=== PATIENT | female | born 1995 ===

== ENCOUNTER 2024-10-19 10:47 | Outpatient (CLI) | payer OTHER | END 2024-10-19 10:54 | disposition home or self-care (01) | LOC: RAD 10:47 | PROVIDERS: ATTEND Obstetrics & Gynecology Gynecology | DX: R05.9 Cough, unspecified (principal) ==

== ENCOUNTER 2024-10-20 12:15 | Inpatient (IN) | payer OTHER ==
[~2024-10-20] VITALS: Ht 152.4 cm; Wt 73.5 kg
[2024-10-20 14:01] VITALS: BP 105/65
[2024-11-01] MEDS ORDERED: ANTIHEMOPHILIC FACTOR IV SCH ×6 (07:00→21:00)
[2024-11-01] MEDS ORDERED: [UNRECOGNIZED DRUG - OTHER] IV SCH ×6 (07:00→21:00)
[2024-11-01] MEDS ORDERED: POVIDONE-IODINE 118 ML BOTT TOP ONE (12:45)
[2024-11-01] MEDS ORDERED: BACITRACIN 28.35 GM OINT.TUBE TOP ONE (12:45)
[2024-11-01] MEDS ORDERED: BUPIVACAINE HCL/PF 0.25% 30ML VIAL InF ONE (12:45)
[2024-11-01] MEDS ORDERED: LIDOCAINE HCL 1%/EPINEPHRINE 20ML VIAL IJ ONE (12:45)
[2024-11-01] MEDS ORDERED: RINGERS SOLUTION,LACTATED 1,000 ML IV SCH (12:55)
[2024-11-01] MEDS ORDERED: ONDANSETRON HCL 2 MG/ML VIAL IV SCH (12:56)
[2024-11-01] MEDS ORDERED: ACETAMINOPHEN 325 MG TABLET PO STA (13:00)
[2024-11-01] MEDS ORDERED: GABAPENTIN 100 MG CAPSULE PO STA (13:01)
[2024-11-01] MEDS ORDERED: CEFAZOLIN SODIUM 1,000 MG VIAL IV SCH (13:01)
[2024-11-01] MEDS ORDERED: MORPHINE SULFATE 4 MG/ML VIAL IV ONE ×2 (13:30→14:00)
[2024-11-01] MEDS ORDERED: CEFTRIAXONE SODIUM 2,000 MG VIAL IV ONE (15:30)
[2024-11-01] MEDS ORDERED: METRONIDAZOLE/SODIUM CHLORIDE 500 MG/100 ML PIGGYBACK IV ONE (15:30)
[2024-11-01 16:44] LABS: HEMATOCRIT 38.2 % (36.0-45.00); HEMOGLOBIN 13.5 g/dL (12.0-15.00); MEAN CELL VOLUME 88.1 fL (80.00-100.00); MEAN CORPUSCULAR HEMOGLOBIN 31.2 pg (27.00-32.0); MEAN CORPUSCULAR HGB CONC 35.4 g/dl (32.0-36.0); RED BLOOD COUNT 4.33 M/uL (4.00-6.00); RED CELL DISTRIBUTION WIDTH 13.2 % (11.5-14.5)
[2024-11-01 16:45] LABS: PLATELET COUNT 114 K/uL (150-450)
[2024-11-01 16:56] LABS: CALCIUM 8.5 mg/dL (8.5-10.1); CREATININE SERUM 0.75 mg/dL (0.55-1.02); GFR 90.13; POTASSIUM 3.65 mEq/L (3.5-5.1)
[2024-11-01] MEDS ORDERED: MORPHINE SULFATE 4 MG/ML CARTRIDGE IV PRN (18:00)
[2024-11-01 18:11] VITALS: BP 105/65
[2024-11-01 21:48] LABS: INR 1.11; PARTIAL THROMBOPLASTIN TIME 25.4 SECONDS (22.0-34.0)
[2024-11-02] VITALS: BP 99/61
[2024-11-02 07:08] LABS: HEMATOCRIT 36.5 % (36.0-45.00); HEMOGLOBIN 12.7 g/dL (12.0-15.00); MEAN CELL VOLUME 89.8 fL (80.00-100.00); MEAN CORPUSCULAR HEMOGLOBIN 31.2 pg (27.00-32.0); MEAN CORPUSCULAR HGB CONC 34.7 g/dl (32.0-36.0); RED BLOOD COUNT 4.07 M/uL (4.00-6.00)
[2024-11-02 07:28] LABS: CALCIUM 8.4 mg/dL (8.5-10.1); CREATININE SERUM 0.64 mg/dL (0.55-1.02); GFR 108.23; POTASSIUM 3.6 mEq/L (3.5-5.1)
[2024-11-02 07:43] LABS: PLATELET COUNT 77 K/uL (150-450)
[2024-11-02 08:35] VITALS: BP 129/62
[2024-11-02 10:27] LABS: INR 1.24; PARTIAL THROMBOPLASTIN TIME 29.8 SECONDS (22.0-34.0); PROTHROMBIN TIME 13.3 SECONDS (9.0-11.5)
[2024-11-02] MEDS ORDERED: GABAPENTIN 300 MG CAPSULE PO SCH (13:45)
[2024-11-02] MEDS ORDERED: THROMBIN,HU/FIBRINOGEN/CALCIUM 10 ML SYRINGE TOP ONE (15:45)
[2024-11-02 16:38] VITALS: BP 120/84
[2024-11-02] MEDS ORDERED: CYCLOBENZAPRINE HCL 5 MG TABLET PO PRN (17:00)
[2024-11-02] MEDS ORDERED: SIMETHICONE 125 MG CAPSULE PO PRN (20:00)
[2024-11-02 22:02] LABS: INR 1.26; PARTIAL THROMBOPLASTIN TIME 29.6 SECONDS (22.0-34.0); PROTHROMBIN TIME 13.5 SECONDS (9.0-11.5)
[2024-11-03 01:45] VITALS: BP 101/62
[2024-11-03 08:43] VITALS: BP 134/69
[2024-11-03 11:41] LABS: HEMATOCRIT 36.4 % (36.0-45.00); HEMOGLOBIN 12.7 g/dL (12.0-15.00); MEAN CELL VOLUME 89.7 fL (80.00-100.00); MEAN CORPUSCULAR HEMOGLOBIN 31.2 pg (27.00-32.0); MEAN CORPUSCULAR HGB CONC 34.8 g/dl (32.0-36.0); RED BLOOD COUNT 4.06 M/uL (4.00-6.00); RED CELL DISTRIBUTION WIDTH 13.7 % (11.5-14.5)
[2024-11-03 11:58] LABS: INR 1.16; PARTIAL THROMBOPLASTIN TIME 27.1 SECONDS (22.0-34.0); PROTHROMBIN TIME 12.5 SECONDS (9.0-11.5)
[2024-11-03 12:46] LABS: PLATELET COUNT 91 K/uL (150-450)
[2024-11-03] MEDS ORDERED: ACETAMINOPHEN 325 MG TABLET PO PRN (14:45)
[2024-11-03 17:18] VITALS: BP 103/67
[2024-11-03 18:29] LABS: URINE APPEARANCE Clear; URINE BILIRRUBIN Negative (NEGATIVE); URINE BLOOD Negative; URINE COLOR Yellow; URINE GLUCOSE Negative (NEGATIVE); URINE KETONE Trace (NEGATIVE); URINE LEUKOCYTE Negative; URINE NITRATE Negative; URINE PROTEIN Negative (NEGATIVE); URINE UROBILINOGEN 0.2 E.U./dl
[2024-11-03 18:30] LABS: URINE BACTERIA 4.8 uL (0.0-1933); URINE EPITHELIAL CELLS 2.9 uL (0.0-38.8)
[2024-11-03 18:33] LABS: URINE CAST 0.14 uL (0.0-1.40); URINE WBC 1.4 uL (0.0-23.2)
[2024-11-04 00:08] VITALS: BP 111/73
[2024-11-04 08:02] LABS: HEMATOCRIT 31.7 % (36.0-45.00); HEMOGLOBIN 11.3 g/dL (12.0-15.00); MEAN CELL VOLUME 88.8 fL (80.00-100.00); MEAN CORPUSCULAR HEMOGLOBIN 31.7 pg (27.00-32.0); MEAN CORPUSCULAR HGB CONC 35.7 g/dl (32.0-36.0); RED BLOOD COUNT 3.57 M/uL (4.00-6.00); RED CELL DISTRIBUTION WIDTH 13.1 % (11.5-14.5)
[2024-11-04 08:27] LABS: PLATELET COUNT 81 K/uL (150-450)
[2024-11-04 09:39] LABS: MANUAL PLATELET COUNT 190
[2024-11-04 13:51] VITALS: BP 102/66
[2024-11-04 16:00] VITALS: BP 108/70
[2024-11-04 23:52] VITALS: BP 103/69
[2024-11-05 08:11] VITALS: BP 104/62
[2024-11-05 08:15] LABS: HEMATOCRIT 31.8 % (36.0-45.00); HEMOGLOBIN 11.3 g/dL (12.0-15.00); MEAN CELL VOLUME 88.7 fL (80.00-100.00); MEAN CORPUSCULAR HEMOGLOBIN 31.5 pg (27.00-32.0); MEAN CORPUSCULAR HGB CONC 35.5 g/dl (32.0-36.0); RED BLOOD COUNT 3.58 M/uL (4.00-6.00); RED CELL DISTRIBUTION WIDTH 13.5 % (11.5-14.5)
[2024-11-05 08:30] LABS: PLATELET COUNT 90 K/uL (150-450)
[2024-11-06 14:09] LABS: FACTOR VIII ACTIVITY 100 % (56-140); VON WILLERBRAND ACTIVITY 36 % (50-200)
[2024-11-06 14:09] LABS: FACTOR VIII ACTIVITY 193 % (56-140); VON WILLERBRAND ACTIVITY 92 % (50-200)
[2024-11-06 14:09] LABS: FACTOR VIII ACTIVITY 132 % (56-140); VON WILLERBRAND ACTIVITY 87 % (50-200)
== END 2024-11-05 15:50 | disposition home or self-care (01) | DRG 742 ==
LOC: EDUNIT# 12:15 → O/R 11-01 06:39 → OB/GYN 11-01 07:00
PROVIDERS: Internal Medicine Geriatric Medicine; Internal Medicine Hematology & Oncology; Surgery; Urology; ADMIT Obstetrics & Gynecology Gynecology; ATTEND Obstetrics & Gynecology Gynecology
PROC: 0UN14ZZ Release Left Ovary, Percutaneous Endoscopic Approach (ICD-10-PCS; 2024-11-01)
PROC: 0WBH4ZZ Excision of Retroperitoneum, Percutaneous Endoscopic Approach (ICD-10-PCS; 2024-11-01)
PROC: 0T788DZ Dilation of Bilateral Ureters with Intraluminal Device, Via Natural or Artificial Opening Endoscopic (ICD-10-PCS; 2024-11-01)
PROC: 0UT94ZZ Resection of Uterus, Percutaneous Endoscopic Approach (ICD-10-PCS; principal; 2024-11-01 07:00)
PROC: 0UT64ZZ Resection of Left Fallopian Tube, Percutaneous Endoscopic Approach (ICD-10-PCS; 2024-11-01 07:00)
PROC: 0DNW4ZZ Release Peritoneum, Percutaneous Endoscopic Approach (ICD-10-PCS; 2024-11-01 07:00)
DX: N80.03 Adenomyosis of the uterus (principal); D68.020 Von Willebrand disease, type 2A; N80.02 Deep endometriosis of the uterus; K66.0 Peritoneal adhesions (postprocedural) (postinfection); N80.102 Endometriosis of left ovary, unspecified depth; N80.559 Endometriosis of other parts of the colon, unspecified depth; N80.8 Other endometriosis; R10.2 Pelvic and perineal pain; Z20.822 Contact with and (suspected) exposure to COVID-19